=== PATIENT | female | born 1970 | race Caucasian/White ===

== ENCOUNTER 2018-01-14 06:22 | Day surgery (SDC) | payer OTHER ==
[~2018-01-14] VITALS: Ht 162.6 cm; Wt 81.6 kg
[2018-01-14] MEDS ORDERED: MORPHINE SULFATE 4 MG/ML SYR IM/IVP PRN (07:10)
[2018-01-14] MEDS ORDERED: ONDANSETRON 4 MG/2 ML VIAL IVP PRN (07:10)
[2018-01-14] MEDS ORDERED: IBUPROFEN 800 MG TAB PO PRN (07:10)
[2018-01-14] MEDS ORDERED: ACETAMINOPHEN/CODEINE 300/30MG 1 TAB PO PRN (07:10)
[2018-01-14] MEDS ORDERED: KETOROLAC 30 MG/ML VIAL ONE (07:32)
[2018-01-14] MEDS ORDERED: DEXAMETHASONE 4 MG/ML VIAL ONE (07:32)
[2018-01-14] MEDS ORDERED: ONDANSETRON 4 MG/2 ML VIAL ONE (07:32)
[2018-01-14] MEDS ORDERED: SEVOFLURANE 250 ML BTL INH ONE (07:32)
[2018-01-14] MEDS ORDERED: PROPOFOL 200 MG/20 ML VIAL IV ONE (07:32)
[2018-01-14] MEDS ORDERED: fentaNYL 0.05 MG/ML VIAL ONE (07:36)
== END 2018-01-14 10:10 | disposition home or self-care (01) ==
LOC: MOR 06:22 → MMU 06:23 → MOR 10:10
PROVIDERS: ATTEND Obstetrics & Gynecology
DX: N92.1 Excessive and frequent menstruation with irregular cycle (principal); Z90.49 Acquired absence of other specified parts of digestive tract; Z98.51 Tubal ligation status; Z79.899 Other long term (current) drug therapy
CPT/HCPCS: 58120; J1100; J1885; J2405; J2704; J3010; J7120